=== PATIENT | female | born 1975 | race African-American/Black ===

== ENCOUNTER 2020-01-09 22:30 | Inpatient (IN) | payer SELFPAY ==
[~2020-01-09] VITALS: Ht 167.6 cm; Wt 106.6 kg
[2020-01-10] MEDS ORDERED: ASPIRIN 81MG TABLET PO ONE
[2020-01-10 00:20] LABS: EOSINOPHILS % 2.1 % (0.0-5.0); HEMATOCRIT. 38.3 % (36.0-48.0); HEMOGLOBIN. 12.7 g/dL (12.0-16.0); LYMPHOCYTES % 33.8 % (20.0-50.0); MEAN CORPUSCULAR HEMOGLOBIN 26.5 pg (28.0-32.0); MEAN CORPUSCULAR VOLUME 80.3 fL (81.0-99.0); MEAN PLATELET VOLUME 9.1 fl (7.4-10.4); MONOCYTES % 8.3 % (2.0-8.0); NEUTROPHILS % 53.8 % (40.0-76.0); PLATELET 356 x1000/uL (130-400); RED BLOOD CELL COUNT 4.77 mill/uL (4.2-5.4); RED CELL DISTRIBUTION WIDTH 14.9 % (11.6-14.6)
[2020-01-10 00:24] LABS: CHLORIDE 105 mEq/L (98-107)
[2020-01-10 00:27] LABS: PARTIAL THROMBOPLASTIN TIME 24.5 sec (23.4-31.0); PROTHROMBIN TIME 10.7 sec (9.6-11.0)
[2020-01-10 00:29] LABS: HCG SCREEN NEGATIVE
[2020-01-10] MEDS ORDERED: IOHEXOL-350 100 ML BOTTLE ONE (01:42)
[2020-01-10 06:00] VITALS: BP 131/77
[2020-01-10] MEDS ORDERED: MAGN400C PO (06:01)
[2020-01-10] MEDS ORDERED: ACETAMINOPHEN 325MG TABLET PO PRN (06:30)
[2020-01-10] MEDS ORDERED: KETOROLAC 10MG TABLET PO PRN (06:30)
[2020-01-10 08:00] VITALS: BP 122/65
[2020-01-10 12:00] VITALS: BP 111/67
[2020-01-10 15:53] LABS: CREATINE KINASE 141 IU/L (26-192)
[2020-01-10 15:54] LABS: CREATINE KINASE MB FRACTION < 1.0 ng/mL (0.5-3.6)
[2020-01-10 16:00] VITALS: BP 119/44
[2020-01-10 17:08] LABS: T4 FREE 0.92 ng/dL (0.76-1.46)
[2020-01-10 20:00] VITALS: BP 111/63
[2020-01-10 23:25] LABS: CREATINE KINASE 131 IU/L (26-192)
[2020-01-10 23:26] LABS: CREATINE KINASE MB FRACTION < 1.0 ng/mL (0.5-3.6)
[2020-01-11] VITALS: BP 108/59
[2020-01-11 04:00] VITALS: BP 111/59
[2020-01-11 08:00] VITALS: BP 111/63
[2020-01-11 12:00] VITALS: BP 111/52
[2020-01-11 15:45] VITALS: BP 122/62
[2020-01-11 16:00] VITALS: BP 122/62
== END 2020-01-11 16:00 | disposition home or self-care (01) | DRG 203 ==
LOC: ER 22:30 → 5WST 01-10 03:18 → ENRESERV 01-10 04:41 → 5WST 01-10 05:59
PROVIDERS: ADMIT Internal Medicine; ATTEND Internal Medicine
DX: R07.89 Other chest pain (principal); E66.9 Obesity, unspecified; R06.00 Dyspnea, unspecified; M54.2 Cervicalgia; R06.4 Hyperventilation; Z82.49 Family history of ischemic heart disease and other diseases of the circulatory system; Z83.3 Family history of diabetes mellitus; Z86.711 Personal history of pulmonary embolism; Z79.899 Other long term (current) drug therapy; Z68.37 Body mass index [BMI] 37.0-37.9, adult
CPT/HCPCS: 36415; 70490; 71045; 71275; 80053; 82550; 82553; 83880; 84439; 84443; 84481; 84484; 84703; 85025; 93005; 93306; 93970; 99285; Q9967

== ENCOUNTER 2021-06-16 16:18 | Emergency (ER) | payer MEDICAID ==
[~2021-06-16] VITALS: Ht 167.6 cm; Wt 59.0 kg
[~2021-06-16 16:18] MED LIST: MAGN400C PO
[2021-06-16 17:41] LABS: BASOPHILS % 1.3 % (0.0-2.0); EOSINOPHILS % 1.9 % (0.0-5.0); HEMATOCRIT. 36.7 % (36.0-48.0); HEMOGLOBIN. 11.6 g/dL (12.0-16.0); LYMPHOCYTES % 31.3 % (20.0-50.0); MEAN CORPUSCULAR HEMOGLOBIN 25.3 pg (28.0-32.0); MEAN CORPUSCULAR VOLUME 80.3 fL (81.0-99.0); MEAN PLATELET VOLUME 8.4 fl (7.4-10.4); MONOCYTES % 8.5 % (2.0-8.0); PLATELET 416 x1000/uL (130-400); RED BLOOD CELL COUNT 4.57 mill/uL (4.2-5.4); RED CELL DISTRIBUTION WIDTH 14.8 % (11.6-14.6)
[2021-06-16 17:52] LABS: CHLORIDE 107 mEq/L (98-107)
[2021-06-16 18:08] LABS: CLARITY URINE CLOUDY (CLEAR); COLOR URINE DARK YELLOW (YELLOW); KETONES URINE TRACE (NEGATIVE); LEUKOCYTE ESTERASE URINE NEGATIVE (NEGATIVE); NITRITE URINE NEGATIVE (NEGATIVE); OCCULT BLOOD URINE NEGATIVE (NEGATIVE); PROTEIN URINE TRACE (NEGATIVE); SPECIFIC GRAVITY URINE 1.031 (1.005-1.030); UROBILINOGEN URINE 0.2 E.U./dL (0.2-1.0)
[2021-06-16] MEDS ORDERED: DOXY100C5 MT (19:23)
[2021-06-16] MEDS ORDERED: DOXYCYCLINE HYCLATE 100MG CAPSULE PO ONE (19:30)
[2021-06-16] MEDS ORDERED: CEFTRIAXONE SODIUM 500 MG/VIAL IM ONE (19:30)
[2021-06-16] MEDS ORDERED: METRONIDAZOLE 500MG TABLET PO ONE (19:30)
[2021-06-16 21:00] VITALS: BP 106/56
== END 2021-06-16 21:30 | disposition home or self-care (01) ==
LOC: ER 16:18
DX: N73.9 Female pelvic inflammatory disease, unspecified (principal); Z98.890 Other specified postprocedural states
CPT/HCPCS: 36415; 76830; 76856; 80053; 81003; 81025; 85025; 86850; 86900; 86901; 87210; 87491; 87591; 96372; 99284; J0696

== ENCOUNTER 2022-05-04 18:37 | Emergency (ER) | payer MEDICAID, OTHER ==
[~2022-05-04] VITALS: Ht 172.7 cm; Wt 89.0 kg
[~2022-05-04 18:37] MED LIST changes: +DOXY100C5 MT
[2022-05-04] MEDS ORDERED: DOXYCYCLINE HYCLATE 100MG CAPSULE PO ONE (22:45)
[2022-05-04] MEDS ORDERED: CEFTRIAXONE SODIUM 500 MG/VIAL IM ONE (22:45)
[2022-05-04] MEDS ORDERED: IBUPROFEN 800MG TABLET PO ONE (23:30)
[2022-05-04 23:41] VITALS: BP 131/76
[2022-05-05 00:27] LABS: CLARITY URINE CLEAR (CLEAR); COLOR URINE YELLOW (YELLOW); KETONES URINE TRACE (NEGATIVE); LEUKOCYTE ESTERASE URINE NEGATIVE (NEGATIVE); NITRITE URINE NEGATIVE (NEGATIVE); OCCULT BLOOD URINE NEGATIVE (NEGATIVE); PH URINE 5.5 (4.5-8.0); PROTEIN URINE TRACE (NEGATIVE); SPECIFIC GRAVITY URINE 1.025 (1.005-1.030)
[2022-05-05] MEDS ORDERED: IBUP-2029 MT (00:34)
[2022-05-05] MEDS ORDERED: DOXY-326 MT (00:34)
[2022-05-09 06:08] LABS: NEISSERIA GONORRHOEAE NAA Negative (Negative)
== END 2022-05-05 00:58 | disposition home or self-care (01) ==
LOC: ER 18:37
DX: J02.9 Acute pharyngitis, unspecified (principal); Z20.2 Contact with and (suspected) exposure to infections with a predominantly sexual mode of transmission
CPT/HCPCS: 81003; 81025; 87070; 87430; 87491; 87591; 96372; 99283; J0696

== ENCOUNTER 2022-08-17 05:10 | Emergency (ER) | payer MEDICAID, OTHER ==
[~2022-08-17] VITALS: Ht 167.6 cm; Wt 101.3 kg
[~2022-08-17 05:10] MED LIST changes: +DOXY-326 MT; +IBUP-2029 MT
[2022-08-17 05:36] VITALS: BP 118/57
[2022-08-17] MEDS ORDERED: KETOROLAC 60MG/2ML VIAL IM ONE (06:00)
[2022-08-17] MEDS ORDERED: IBUP-2030 MT (06:52)
[2022-08-17] MEDS ORDERED: TIZA2CAP7 MT (06:52)
== END 2022-08-17 07:20 | disposition home or self-care (01) ==
LOC: ER 05:10
DX: M54.31 Sciatica, right side (principal)
CPT/HCPCS: 81025; 93971; 96372; 99285; J1885